=== PATIENT | female | born 1955 | race Hispanic/Latino ===

== ENCOUNTER 2019-07-27 09:01 | Outpatient (CLI) | payer MEDICARE ==
--- NOTE | 2019-07-27 10:43 | Fluoroscopy Report ---
Barium swallow Indication: DYSPHAGIA FOR SOLIDS/WEIGHT LOSS/ABNORMAL NODULES ON CT CHEST-SMO. Technique: Single and double contrast barium technique utilized to evaluate the esophagus. Findings: To begin the exam, swallowing was evaluated in the lateral position under direct fluorosco py. Swallowing was normal. No mucosal irregularity, mass, mass effect, or critical stenosis. There were abnormal tertiary cont ractions as seen with dysmotility. No gastroesophageal reflux. Impression: Mild gastroesophageal dysmotility. Fluoroscopic time: 1.5 minutes Number of fluoroscopic images: 17 Signer Name: Brian Teague MD Signed: 07/27/2019 10:39 AM Workstation Name: [id number]
== END 2019-07-27 09:02 | disposition home or self-care (01) ==
LOC: FLUORO 09:01
DX: K22.4 Dyskinesia of esophagus (principal); R13.10 Dysphagia, unspecified
CPT/HCPCS: 74220

== ENCOUNTER 2020-06-23 18:20 | Emergency (ER) | payer MEDICARE ==
--- NOTE | 2020-06-23 18:45 | Emergency Department Report ---
HPI - General Time Seen by Provider: 06/23/20 18:29 - HPI HPI: This is a 65-year-old female who presents to the emergency department via EMS from home in cardiac arrest. It is unknown whether it was a witnessed arrest or if the patient was found unresponsive, but family allegedly started CPR and called for EMS. EMS arrived and found the patient to be pulseless and in asystole. The patient was intubated and began receiving bag valve ventilation and chest compressions. A peripheral IV was placed and the patient received 3 rounds of epinephrine. EMS says the patient was down and unresponsive for at least 30 minutes prior to their arrival in the emergency department and she remained in asystole the entire time. An Accu-Chek was done in route that was 180. The patient allegedly has a history of some type of cancer. EMS says that family was unaware as to what type of cancer the patient has and whether or not the patient was a DNR. Also, apparently the patient had just signed out AMA from a different hospital yesterday. ED Review of Systems ROS: Stated complaint: DIFF BREATHING Other details as noted in HPI Comment: Unobtainable due to pts medical conditions Physical Exam - Physical Exam Physical Exam: GENERAL: Patient is ill-appearing and unresponsive. HENT: Normocephalic. Atraumatic. EYES: Pupils are fixed and dilated. NECK: Supple. Trachea appears midline. CHEST/LUNGS: There are no spontaneous respirations. HEART/CARDIOVASCULAR: There are no spontaneous heart sounds. ABDOMEN: Abdomen is soft. There is no abdominal distention. SKIN: Skin is cool but dry. NEURO: Unresponsive. Does not withdraw to painful stimuli. Does not follow any commands. MUSCULOSKELETAL: There is no obvious deformity. There is no evidence of acute injury. No palpable femoral or radial pulses. ED Medical Decision Making - Medical Decision Making This patient presents to the emergency department in cardiac arrest. She has already been down and unresponsive and pulseless for greater than 30 minutes in asystole with EMS. Upon arrival the patient is still pulseless and unresponsive and appears to be in PEA. We continued bag valve ventilation through the endotracheal tube as well as high-quality chest compressions. Patient received a dose of epinephrine and a dose of bicarb. On the pulse and rhythm check the patient was once again in PEA. The patient was given another dose of epinephrine. We continued ACLS protocol. On the next pulse and rhythm check the patient was still in PEA. By this time the patient has been pulseless for close to 50 minutes. Her pupils are fixed and dilated. There are no spontaneous heart or breath sounds. There is no palpable carotid, femoral or radial pulses. Time of called at 1813. The patient's next of kin is her daughter who is a garbage truck driver and currently in [place]. She was notified of the patient's expiration. Critical Care Time: Yes Critical care time in (mins) excluding proc time.: 15 Critical care attestation.: If time is entered above; I have spent that time in minutes in the direct care of this critically ill patient, excluding procedure time. Critical care time was spent on this patient in doing her initial evaluation and supervision of ACLS protocol. Critical Care Time: 15 minutes ED Disposition Clinical Impression: Cardiac arrest Disposition: DC-20 Is pt being admited?: No Time of Disposition: 20:23
== END 2020-06-23 20:34 ==
LOC: ED 18:20
DX: I46.9 Cardiac arrest, cause unspecified (principal)